=== PATIENT | male | born 1945 | race Caucasian/White ===

== ENCOUNTER 2022-10-06 12:54 | Outpatient (RCR) | payer MEDICARE, OTHER | END 2022-10-07 | disposition home or self-care (01) | PROVIDERS: ATTEND Psychiatry & Neurology Neurology | DX: G20 Parkinson's disease (principal) ==

== ENCOUNTER 2022-10-16 14:39 | Outpatient (RCR) | payer MEDICARE, OTHER | END 2022-10-29 11:00 | disposition home or self-care (01) | PROVIDERS: ATTEND Psychiatry & Neurology Neurology | DX: G20 Parkinson's disease (principal) ==